=== PATIENT | female | born 1950 | race Hispanic/Latino ===

== ENCOUNTER → 2020-01-12 | Outpatient (CLI) | payer OTHER | END | disposition home or self-care (01) | LOC: SHCH 12:31 | PROVIDERS: ATTEND Internal Medicine Cardiovascular Disease | DX: I73.9 Peripheral vascular disease, unspecified (principal) | CPT/HCPCS: 93925 ==

== ENCOUNTER → 2021-01-05 | Outpatient (CLI) | payer OTHER | END | disposition home or self-care (01) | LOC: RAH 09:29 | PROVIDERS: ATTEND Internal Medicine Cardiovascular Disease | DX: R22.43 Localized swelling, mass and lump, lower limb, bilateral (principal) | CPT/HCPCS: 93970 ==

== ENCOUNTER → 2021-08-14 | Outpatient (CLI) | payer OTHER | END | disposition home or self-care (01) | LOC: SHCH 13:11 | PROVIDERS: ATTEND Internal Medicine Cardiovascular Disease | DX: I73.9 Peripheral vascular disease, unspecified (principal); R60.9 Edema, unspecified | CPT/HCPCS: 93970 ==

== ENCOUNTER 2021-09-27 05:34 | Day surgery (SDC) | payer OTHER ==
[2021-09-25 09:48] VITALS: BP 150/75
[2021-09-25 09:52] LABS: BASOPHILS % (AUTO) 0.4 % (0.0-5.0); EOSINOPHILS % (AUTO) 1.6 % (0.0-8.0); HEMATOCRIT 39.2 % (36-48); LYMPHOCYTES % (AUTO) 19.4 % (21.0-51.0); MEAN CORPUSCULAR HGB CONC 29.3 g/dL (32.0-36.0); MEAN CORPUSCULAR VOLUME 102.3 fL (79-99); MONOCYTES % (AUTO) 7.9 % (3.0-13.0); NEUTROPHILS % (AUTO) 70.3 % (40.0-77.0); PLATELET COUNT (AUTO) 197 K/uL (130-400); RED BLOOD CELL COUNT(AUTO) 3.83 MIL/uL (4.00-5.50); RED CELL DISTRIBUTION WIDTH 12.3 % (11.0-15.5)
[2021-09-25 10:02] LABS: CREATININE 0.6 mg/dL (0.5-1.5); POTASSIUM 3.8 mmol/L (3.5-5.1)
[2021-09-25 10:42] LABS: INR 0.93 (0.85-1.15)
[2021-09-25 10:43] LABS: PARTIAL THROMBOPLASTIN TIME 24.3 SEC (26.3-35.5)
[2021-09-27] VITALS (11 sets, daily range): BP systolic 99–181; BP diastolic 46–80
[~2021-09-27] VITALS: Ht 157.5 cm; Wt 29.6 kg
[~2021-09-27 05:34] MED LIST: 0.9% NACL 500ML IV.SOLN 500 ML IV SCH
[2021-09-27] MEDS ORDERED: 0.9%NACL 1000ML 1,000 ML IV ONE (06:06)
[2021-09-27] MEDS ORDERED: LIDOCAINE HCL 1% 20 ML VIAL ONE (07:05)
[2021-09-27] MEDS ORDERED: HEPARIN 10,000 UNIT/10ML (1,000 UNIT/ML) VIAL ONE (07:05)
[2021-09-27] MEDS ORDERED: IOHEXOL-350 50ML VIAL IV ONE (07:06)
[2021-09-27] MEDS ORDERED: IOHEXOL 350 MG/ML 100ML INFUS..BTL IV ONE (07:06)
[2021-09-27] MEDS ORDERED: NITROGLYCERIN 50MG VIAL ONE (07:06)
[2021-09-27] MEDS ORDERED: MIDAZOLAM HCL 1 MG/ML 2ML VIAL ONE (07:07)
[2021-09-27] MEDS ORDERED: FENTANYL CITRATE PF 50 MCG/1 ML 2ML VIAL ONE (07:07)
[2021-09-27] MEDS ORDERED: IODIXANOL 320 MG/ML 100 ML VIAL ONE (07:18)
[2021-09-27] MEDS ORDERED: NICARDIPINE 25MG INJ IV ONE (08:32)
[2021-09-27] MEDS ORDERED: HYDRALAZINE 20MG/ML VIAL ONE (09:06)
[2021-09-27] MEDS ORDERED: LABETALOL 20MG VIAL IV ONE (09:10)
[2021-09-27] MEDS ORDERED: ALEN70TA80 PO (09:59)
[2021-09-27] MEDS ORDERED: BACL10TA PO (09:59)
[2021-09-27] MEDS ORDERED: ALBU2.5V2 IH (09:59)
[2021-09-27] MEDS ORDERED: ATOR20TA65 PO (09:59)
[2021-09-27] MEDS ORDERED: MULT120T PO (09:59)
[2021-09-27] MEDS ORDERED: HYDR200T4 PO (09:59)
[2021-09-27] MEDS ORDERED: [UNRECOGNIZED DRUG - OTHER] PO (09:59)
[2021-09-27] MEDS ORDERED: PRED15SO11 PO (09:59)
[2021-09-27] MEDS ORDERED: ERGO2000 PO (09:59)
[2021-09-27] MEDS ORDERED: AEC81 PO (09:59)
[2021-09-27] MEDS ORDERED: MIRT-22 PO (09:59)
[2021-09-27] MEDS ORDERED: CILO100T PO (09:59)
== END 2021-09-27 13:46 | disposition home or self-care (01) ==
LOC: DAH 05:34
PROVIDERS: ATTEND Internal Medicine Cardiovascular Disease
DX: I70.203 Unspecified atherosclerosis of native arteries of extremities, bilateral legs (principal); E78.5 Hyperlipidemia, unspecified; M79.672 Pain in left foot; M34.9 Systemic sclerosis, unspecified; Z79.899 Other long term (current) drug therapy
CPT/HCPCS: 36246; 36415; 71045; 75716; 80048; 85025; 85610; 85730; 93005; A4215; A4216; A4221; A4222; A4223 ×3; A4606; A4663; C1769; C1894 ×2; J0360; J1644; J2250; J3010; J3490 ×2; J7030; Q9967; 36247; 99156; 99157